=== PATIENT | female | born 1975 | race Caucasian/White ===

== ENCOUNTER 2021-09-15 12:50 | Emergency (ER) | payer MEDICAID ==
[2021-09-15 12:58] VITALS: BP 149/86
--- NOTE | 2021-09-15 13:34 | ED Physician Documentation ---
PD HPI SKIN - Stated complaint Stated Complaint: BUMPS ON HEAD - Chief complaint Chief Complaint: General - History obtained from History obtained from: Patient - History of Present Illness Timing - onset: How many months ago (many months of skin scaly/itchy lesions, on legs and scalp.) Timing - duration: Months Timing - details: Waxing and waning (has had months of varying amount of scalp scaling, itching, skin thickening. No hair loss. Also rounded small skin sores with scaling on both lower legs, anterior and lateral mostly. None on trunk nor arms.) Location: Scalp, RLE, LLE Review of Systems Constitutional: denies: Fever, Chills Nose: denies: Rhinorrhea / runny nose, Congestion Throat: denies: Sore throat Skin: reports: Other (no hair loss.) PD PAST MEDICAL HISTORY - Past Medical History Cardiovascular: None Respiratory: None Endocrine/Autoimmune: None Musculoskeletal: None - Present Medications Home Medications: Ambulatory Orders Medication Instructions Recorded Confirmed Salicylic Acid/Sulfur [Sebex 1 applic TP DAILY 10 Days #118 ml 09/15/21 Shampoo] Triamcinolone 0.1% Oint [Kenalog 1 applic TOP BID 7 Days #15 gm 09/15/21 0.1% Oint] dexAMETHasone [Decadron] 4 mg PO DAILY #7 tablet 09/15/21 - Allergies Allergies/Adverse Reactions: Allergies Allergy/AdvReac Type Severity Reaction Status Date / Time morphine Allergy Unknown Verified 09/15/21 12:56 PD ED PE NORMAL - Vitals Vital signs reviewed: Yes - General General: Alert and oriented X 3, Well developed/nourished - Neck Neck: Supple, no meningeal sign, No adenopathy - Derm Derm: Normal color, Warm and dry, Other (scalp with mostly right sided frontal and parietal areas of skin thickening and scaling with lump feeling under it that is moveable with the scalp. No alopecia. No fluctuance. Both lower legs with discrete rounded 2-3 cm plaques of raised scaling skin with central redness. ) Results - Vitals Vitals: Oxygen O2 Source Room air PD MEDICAL DECISION MAKING - ED course Complexity details: considered differential (looks like nummular eczema on legs and presume scalp, though element of seborrhea as well for scalp. Does not have facial seborrheic changes. ), d/w patient Departure - Departure Disposition: 01 Home, Self Care Clinical Impression: Nummular eczema Condition: Stable Record reviewed to determine appropriate education?: Yes Instructions: ED Dermatitis Atopic Eczema Follow-Up: [facility] [Provider Group] Prescriptions: dexAMETHasone [Decadron] 4 mg PO DAILY #7 tablet Triamcinolone 0.1% Oint [Kenalog 0.1% Oint] 1 applic TOP BID 7 Days #15 gm Salicylic Acid/Sulfur [Sebex Shampoo] 1 applic TP DAILY 10 Days #118 ml Comments: I believe this is a skin inflammatory condition called eczema. It can occur in round patches like this on your legs and scalp called nummular eczema. The scalp alternatively may be also a version of dandruff (seborrhea). I would treat this as psoriasis initially with oral steroid for a week and also you can use triamcinolone topical steroid lightly once or twice daily to the major areas on your legs and scalp. I would also use the dandruff shampoo daily for the scalp. It would be good to follow-up with dermatology for confirmation on the diagnosis. They can do biopsies if needed or just visually confirm it in their experience and provide other possible treatments for the psoriasis. 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 Discharge Date/Time: 09/15/21 14:29
[2021-09-15] MEDS ORDERED: CHERRY SYRUP 10 ML UDC PO ONE (14:07)
[2021-09-15] MEDS ORDERED: DEXAMETHASONE 10 MG/ML VIAL PO STA (14:07)
== END 2021-09-15 14:29 | disposition home or self-care (01) ==
LOC: ED 12:50
DX: L30.0 Nummular dermatitis (principal)
CPT/HCPCS: 99282; 99283; A9270